=== PATIENT | female | born 2000 | race Caucasian/White ===

== ENCOUNTER 2024-03-03 11:54 | Emergency (ER) | payer OTHER, SELFPAY ==
[2024-03-03] VITALS (23 sets, daily range): BP systolic 106–174; BP diastolic 76–113; PULSE 85–128; TEMP 37.1; O2SAT 94–100; BMI 23.6
--- NOTE | 2024-03-03 12:13 | ECG_ITS ---
[facility] Test Date: 2024-03-03 Pat Name: BRYAN ZURITA Department: Room: - Gender: Female Brick Pointer: : 2000 Requested By: [id number] Order Number: [id number] Reading MD: RAYMOND HENDERSON Measurements Intervals [place] Rate: 115 P: 57 [place]: 140 QRS: 78 QRSD: 88 T: 38 QT: 336 QTc: 404 Interpretive Statements 1120 Sinus tachycardia [address] depression [address] & [place] abnormality 9150 abnormal ECG No previous ECG available for comparison Electronically Signed On 03-03-2024 22:51:54 EST by RAYMOND HENDERSON
--- NOTE | 2024-03-03 12:15 | ED.GENADUL1 ---
HPI HPI - General Adult General Chief complaint: Alcohol Stated complaint: WITHDRAWL Time Seen by Provider: 03/03/24 12:04 Source: patient Mode of arrival: walk-in Limitations: no limitations History of Present Illness HPI narrative: Patient presented to the emergency department for evaluation of alcohol abuse/withdrawal. Patient states that she was at her PCP, has been following with them for couple weeks for having chronic back pain. She states that he had a CAT scan that was done, which showed a regular fluid sitting in her abdomen. She went to her PCP today for routine follow-up, said for the last day and a half she has been not feeling well, nausea, vomiting, cannot keep anything down. No food or alcohol. Did admit to her PCP finally today that she has not been alcoholic. States that she drinks anywhere from half a pint to a full pint per day of hard liquor, as well as sixpack of beer. She states that she did drink heavily on Sunday, has not drinking anything today or Sunday, is interested in quitting. Went to her PCP today, they noted she was withdrawing, having tremors, nausea and vomiting, and they sent her here for treatment and evaluate. Patient denies suicidal ideation, homicidal ideation, states that she is having down. Feels shaky, anxious. No other complaints at this time Related Data Previous Rx's ?Medication ?Instructions ?Recorded chlordiazepoxide HCl 25 mg capsule See Rx Instructions .Route 03/03/24 .COMPLEX #15 caps Allergies Allergy/AdvReac Type Severity Reaction Status Date / Time No Known Drug Allergies Allergy Verified 03/03/24 12:03 Opioid HPI Opioid Management Most Recent Opioid Data: Last Pain Scale 7 03/03/24 12:11 03/03/24 Last ED Pain Assessment 03/03/24 12:11 Review of Systems ROS Narrative Negative unless otherwise stated in HPI PFSH PFSH Social History Little interest or pleasure in doing things: not at all Feeling down, depressed, or hopeless: several days Exam Narrative Exam Narrative: General: NAD, AAOx3, no distress HEENT: NCAT, mmm Respiratory: respiratory effort normal, speaks in full sentences, no tripod position, no accessory muscle use. Lungs clear to auscultation without rhonchi, wheezes, rales Cardiac: Tachycardia, regular, no edema, regular s1/s2, no m/g/r Abdomen: Soft, no tenderness elicited. No evidence of fluid wave. No pulsatile masses on exam, rebound tenderness, Turner sign or pain over Mcburney's point. Neuro: Speech is clear and appropriate. Normal level of consciousness. Gait and coordination are normal. 5/5 strength in all extremities. Psych: Normal mood and affect. Judgement/competence is appropriate Constitutional Vital Signs, click to edit/add: Last Vital Signs Temp 98.7 F 03/03/24 11:58 Pulse 85 03/03/24 13:10 Resp 17 03/03/24 13:10 BP 122/86 03/03/24 13:00 Pulse Ox 97 03/03/24 13:10 O2 Del Method Room Air 03/03/24 11:58 Course Vital Signs Vital signs: Vital Signs Temperature 98.7 F 03/03/24 11:58 Pulse Rate 126 H 03/03/24 11:58 Respiratory Rate 22 H 03/03/24 11:58 Blood Pressure 174/113 H 03/03/24 11:58 Pulse Oximetry 99 03/03/24 11:58 Oxygen Delivery Method Room Air 03/03/24 11:58 Temperature 98.7 F 03/03/24 11:58 Pulse Rate 85 03/03/24 13:10 Respiratory Rate 17 03/03/24 13:10 Blood Pressure 122/86 03/03/24 13:00 Pulse Oximetry 97 03/03/24 13:10 Oxygen Delivery Method Room Air 03/03/24 11:58 Medical Decision Making MDM Narrative Medical decision making narrative: Advanced guidance has been given. Vss, pex is benign at this time. Pt to fu with pcp 1-2 days for reeval, rter should sx worsen, persist or become worrysome in any way. Heart rate improved to 92 on discharge. Potassium was supplemented. Patient states that she feels better, has no tremors, CIWA has improved dramatically. All incidental laboratory studies, EKG, radiologic findings have been noted and discussed with patient. Patient was reevaluated with a benign exam at this time. Pt expressed understanding and agreement with plan of care at this time. Will fu as planned. Pt stable for discharge. Lab Data Labs: Lab Results 03/03/24 Range/Units 12:03 WBC 7.2 (4.0-11.0) 10^3/uL RBC 4.68 (4.20-5.40) 10^6/uL Hgb 14.8 (12.0-16.0) g/dL Hct 42.5 (36.0-48.0) % MCV 90.8 (81.0-99.0) fL MCH 31.6 (26.7-34.0) pg MCHC 34.8 (29.9-35.2) g/dL RDW 11.8 (11.0-15.0) % Plt Count 273 (150-450) 10^3/uL MPV 10.5 (9.5-13.5) fL Neut % (Auto) 71.8 (43.0-75.0) % Lymph % (Auto) 19.7 L (20.5-60.0) % Greer % (Auto) 7.8 (1.7-12.0) % Eos % (Auto) 0.0 L (0.9-7.0) % Baso % (Auto) 0.4 (0.2-2.0) % Neut # (Auto) 5.2 (1.4-6.5) 10^3/uL Lymph # (Auto) 1.4 (1.2-3.8) 10^3/uL Greer # (Auto) 0.6 (0.3-0.8) 10^3/uL Eos # (Auto) 0.0 (0.0-0.7) 10^3/uL Baso # (Auto) 0.0 (0.0-0.1) 10^3/uL Abs Immat Gran (auto) 0.02 (0.00-0.03) 10^3/uL Imm/Tot Granulo (auto) 0.3 (0.0-0.5) % Sodium 141 (136-145) mmol/L Potassium 3.0 L (3.5-5.1) mmol/L Chloride 102 (98-107) mmol/L Carbon Dioxide 24.1 (21.0-32.0) mmol/L Anion Gap 17.9 BUN 10.0 (7.0-18.0) mg/dL Creatinine 0.85 (0.55-1.02) mg/dL Est GFR ( Amer) >60 (>=60 mL/min/1.73m^2) Est GFR (Non-Af Amer) >60 (>=60 mL/min/1.73m^2) BUN/Creatinine Ratio 11.8 Glucose 106 (74-106) mg/dL Calcium 9.2 (8.5-10.1) mg/dL Magnesium 2.0 (1.8-2.4) mg/dL Total Bilirubin 1.1 H (0.2-1.0) mg/dL AST 31 (15-37) U/L ALT 29 (14-59) U/L Alkaline Phosphatase 56 (46-116) U/L Total Protein 8.3 H (6.4-8.2) g/dL Albumin 4.8 (3.4-5.0) g/dL Globulin 3.5 g/dL Albumin/Globulin Ratio 1.4 Lipase 25.0 (16.0-77.0) U/L Discharge Plan Discharge Chief Complaint: Alcohol Clinical Impression: Alcohol abuse Patient Disposition: Home, Self-Care Time of Disposition Decision: 13:40 Prescriptions / Home Meds: New chlordiazepoxide HCl 25 mg capsule See Rx Instructions .ROUTE .COMPLEX Qty: 15 0RF Rx Instructions: Day 1: 50mg q6h Day 2: 25mg q6h Day 3: 25mg q12h Day 4: 25mg at night Print Language: Panamanian Instructions: Abuse of Alcohol (DC) Additional Instructions: Follow-up with your PCP in the next 1 to 2 days. Return to the emergency department should symptoms worsen or become worrisome in any way. Referrals: AFSANEH WASHINGTON [Primary Care Provider] - 1 week
[2024-03-03 12:20] LABS: Basophils Percent Auto 0.4 % (0.2-2.0); Hematocrit 42.5 % (36.0-48.0); Hemoglobin 14.8 g/dL (12.0-16.0); Immature Granulocytes Abs Auto 0.02 10^3/uL (0.00-0.03); Immature Granulocytes Pct Auto 0.3 % (0.0-0.5); Lymphocytes Absolute Auto 1.4 10^3/uL (1.2-3.8); Lymphocytes Percent Auto 19.7 % (20.5-60.0); Mean Corpuscular HGB Conc 34.8 g/dL (29.9-35.2); Mean Corpuscular Hemoglobin 31.6 pg (26.7-34.0); Mean Corpuscular Volume 90.8 fL (81.0-99.0); Mean Platelet Volume 10.5 fL (9.5-13.5); Monocytes Absolute Auto 0.6 10^3/uL (0.3-0.8); Monocytes Percent Auto 7.8 % (1.7-12.0); Neutrophils Absolute Auto 5.2 10^3/uL (1.4-6.5); Neutrophils Percent Auto 71.8 % (43.0-75.0); Platelet Count 273 10^3/uL (150-450); Red Blood Count 4.68 10^6/uL (4.20-5.40); Red Cell Distribution Width 11.8 % (11.0-15.0); White Blood Count 7.2 10^3/uL (4.0-11.0)
[2024-03-03 12:29] LABS: Alanine Aminotransferase 29 U/L (14-59); Albumin Globulin Ratio 1.4; Albumin Level 4.8 g/dL (3.4-5.0); Alkaline Phosphatase 56 U/L (46-116); Anion Gap 17.9; Aspartate Amino Transferase 31 U/L (15-37); BUN Creatinine Ratio 11.8; Bilirubin Total 1.1 mg/dL (0.2-1.0); Calcium 9.2 mg/dL (8.5-10.1); Carbon Dioxide 24.1 mmol/L (21.0-32.0); Chloride 102 mmol/L (98-107); Estimated GFR (African America >60 (>=60 mL/min/1.73m^2); Estimated GFR (Non-African Ame >60 (>=60 mL/min/1.73m^2); Globulin 3.5 g/dL; Glucose 106 mg/dL (74-106); Sodium 141 mmol/L (136-145); Total Protein 8.3 g/dL (6.4-8.2)
[2024-03-03] MEDS: ONDANSETRON PF 4 MG/2 ML VIAL IV (12:32)
[2024-03-03] MEDS: LORAZEPAM 2 MG/ML VIAL IV (12:32)
[2024-03-03] MEDS: MULTIVIT INFUSN,ADULT 4,VIT K 10 ML in 0.9 % SODIUM CHLORIDE 1,000 ML 125 ML IV (12:52)
[2024-03-03] MEDS: POTASSIUM BICARBONATE/CIT 25 MEQ TABLET EFF 50 MEQ PO (12:52)
== END 2024-03-03 14:54 | disposition home or self-care (01) ==
PROVIDERS: Emergency Provider Emergency Medicine; PCP Family Medicine
DX: F10.10 Alcohol abuse, uncomplicated (principal)
CPT/HCPCS: 36415; 80053; 83690; 83735; 85025; 93005; 96365; 96366; 96375; 99284; J2060; J2405